=== PATIENT | female | born 1940 | race Caucasian/White ===

== ENCOUNTER → 2023-08-12 09:50 | Outpatient (REF) | payer MEDICARE, BC, SELFPAY ==
[2023-08-12 12:01] LABS: % Basophils 1.6 % (0-2); % Eosinophils 2.3 % (0-6); % Monocytes 9.6 % (1.7-9.3); % Neutrophils 61.5 % (42.2-75.2); Absolute Basophils 0.1 10^3/uL (0-0.2); Absolute Eosinophils 0.1 10^3/uL (0-0.7); Absolute Monocytes 0.4 10^3/uL (0.1-0.6); Absolute Neutrophils 2.4 10^3/uL (1.4-6.5); Hematocrit 41.8 % (37.0-47.0); Hemoglobin 13.7 g/dL (12.0-16.0); Mean Corp Hgb Conc. 32.8 g/dL (33.0-37.0); Mean Corpuscular Hgb 31.6 pg (27.0-31.0); Mean Corpuscular Volume 96.5 fL (81.0-99.0); Mean Platelet Volume 10.9 fL (7.4-10.4); Nucleated Red Blood Cells % 0 %; Platelet Count 148 10^3/uL (130-400); Red Blood Cell Count 4.33 10^6/uL (4.20-5.40); Red Cell Dist. Width 13.6 % (11.5-14.5); White Blood Cell Count 3.8 10^3/uL (4.8-10.8)
[2023-08-12 12:14] LABS: Urine Albumin Negative (Neg - Trace); Urine Bilirubin Negative (Negative); Urine Character Clear (Clear); Urine Color Yellow; Urine Glucose Negative (Negative); Urine Ketone Negative (Negative); Urine Leukocyte 1+ (Negative); Urine Nitrite Negative (Negative); Urine Occult Blood Negative (Negative); Urine Urobilinogen Negative (Neg - 1+)
[2023-08-12 12:19] LABS: ALT (SGPT) 18 U/L (0-35); AST (SGOT) 28 U/L (14-36); Alkaline Phosphatase 71 U/L (38-126); Blood Urea Nitrogen 23 mg/dl (7-17); Calcium 9.6 mg/dl (8.4-10.2); Carbon Dioxide 31 mmol/L (22-30); Chloride 102 mmol/L (98-107); Glucose 96 mg/dl (70-99); HDL Cholesterol 82 mg/dl; LDL Cholesterol, Calculated 117 mg/dl; Potassium 4.5 mmol/L (3.5-5.1); Sodium 139 mmol/L (135-145); Total Bilirubin 0.6 mg/dl (0.2-1.3); Total Cholesterol 227 mg/dl (50-199); Total Protein 6.9 g/dl (6.3-8.2); Triglyceride 143 mg/dl (10-149); Very Low Density Lipoprotein 28 mg/dl (0-30); eGFR > 60.00
[2023-08-12 12:33] LABS: Urine Red Blood Cell 0-2 /HPF (0-2)
== END ==
LOC: HWLAB 09:50
PROVIDERS: ATTENDING PHYSICIAN Internal Medicine Geriatric Medicine
DX: I10 Essential (primary) hypertension (principal); M25.551 Pain in right hip; R10.31 Right lower quadrant pain; I48.0 Paroxysmal atrial fibrillation; E78.2 Mixed hyperlipidemia; K21.9 Gastro-esophageal reflux disease without esophagitis; G47.33 Obstructive sleep apnea (adult) (pediatric); E66.01 Morbid (severe) obesity due to excess calories; Z13.89 Encounter for screening for other disorder; R53.82 Chronic fatigue, unspecified; B34.9 Viral infection, unspecified
CPT/HCPCS: 36415; 80053; 80061; 81003; 81015; 85025

== ENCOUNTER → 2023-09-11 11:04 | Outpatient (REF) | payer MEDICARE, BC, SELFPAY | LOC: HWRCS 11:04 | PROVIDERS: ATTENDING PHYSICIAN Internal Medicine Cardiovascular Disease; FAMILY PHYSICIAN Internal Medicine Geriatric Medicine | DX: Z98.890 Other specified postprocedural states (principal) | CPT/HCPCS: 93306 ==

== ENCOUNTER 2023-10-19 13:39 | Emergency (ER) | payer MEDICARE, BC, SELFPAY ==
[2023-10-19 13:45] VITALS: BP 180/77; BMI 35.4
--- NOTE | 2023-10-19 14:59 | ED.GENMED ---
History of Present Illness
General
Chief Complaint: Back Pain
Source: patient
Exam Limitations: none
Time Seen by Provider: 10/19/23 14:58
Nursing documentation reviewed up to this point in time: agreed with
History of Present Illness
History of Present Illness:
83-year-old female with past medical history of spinal stenosis, osteoarthritis, GERD, hypertension, presenting to the emergency department today with concerns of multiple weeks of low back pain. Patient states that this current episode started 2
weeks ago. Patient denies any trauma or falls. Patient does not recall what she is doing when pain started. Patient reports that her pain is worse with movement and tends to be worse upon awakening in the morning and tends to let up further in a
day. Patient has been taking 650 mg of Tylenol at dinnertime to help with her symptoms. Patient states that this will help a bit but her pain will quickly return. Patient has not tried anything else for symptoms. Patient does not have
orthopedist she follows with. Patient has not seen her primary care provider for this issue. Patient denies any fevers or chills, any saddle paresthesias, any fecal urinary incontinence, any paresthesias, any weakness in her legs, and difficulty
ambulating. Patient usually will ambulate with a walker, she lives at home by herself. Patient has any chest pain or shortness of breath, any upper back pain. Patient does take warfarin.
Past History
Past History
ED Past Medical History: CHF, GERD, HTN and Hypercholesterolemia; Negative Asthma or NIDDM
ED Past Surgical History: Gynecological (Oophorectomy)
Social History
Tobacco: Non-smoker
Alcohol: None
Personal: Single
Living: alone
Employment: Retired
Review of Systems
Review of Systems
All Other Systems: ROS reviewed and negative except as documented in HPI and ROS
Phy Exam
Physical Exam
Physical Exam:
General: Patient is well appearing and in no acute distress; non-toxic
Skin: Warm and dry, no rashes or lesions
Head: Normocephalic, atraumatic
Eyes: Sclera non-icteric. EOMs intact.
Cardiac: Regular rate and rhythm, no murmur
Peripheral Vascular: No lower extremity swelling or edema.
Pulm: Normal respiratory effort
Abdomen: No pulsatile abdominal mass
Musculoskeletal: 5 out of 5 strength in bilateral lower extremities. Negative straight leg raise bilaterally. Tenderness palpation of the thoracolumbar spine and paraspinal muscles. No palpable bony deformity.
Neuro: CN II-XII intact, no focal neurologic deficits.
Psychiatric: Appropriate mood and affect.
Course
Orders/Labs/Results
Orders:
Orders
10/19/23 15:24
CT Lumbar Spine W/o Iv Contras Urgent
Comment:
Reason For Exam: persistent low back pain, on warfarin
10/19/23 15:34
Acetaminophen [Tylenol] 1,000 mg PO NOW STA
10/19/23 16:13
Acetaminophen [Tylenol] 1,000 mg .ROUTE .STK-MED ONE
Vital Signs
Initial and Last Documented VS:
Initial Vital Signs
Temp Pulse Resp BP Pulse Ox
98.8 F 60 16 180/77 97
10/19/23 13:45 10/19/23 13:45 10/19/23 13:45 10/19/23 13:45 10/19/23 13:45
Last Documented Vital Signs
Temp Pulse Resp BP Pulse Ox
98.8 F 63 18 185/75 95
10/19/23 13:45 10/19/23 19:34 10/19/23 19:34 10/19/23 19:34 10/19/23 19:34
MDM/Problems Addressed
Differential Diagnosis Includes:
ddx include compression fracture, musculoskeletal sprain/strain, retroperitoneal hematoma, posterior rib contusion
MDM/Problems Addressed:
Persistent back pain:
83-year-old female with past medical history of spinal stenosis, osteoarthritis, GERD, hypertension, presenting to the emergency department today with concerns of multiple weeks of low back pain. Patient states that this current episode started 2
weeks ago. Patient denies any trauma or falls. Patient does not recall what she is doing when pain started. Patient reports that her pain is worse with movement and tends to be worse upon awakening in the morning and tends to let up further in a
day. Considering her use of blood thinner and persistent pain, CT of the lumbar spine was obtained which demonstrated multiple levels of degenerative changes with stenosis and also demonstrated severe osteoporosis and collapse of the T12 vertebral
body secondary to chronic superior endplate fracture with retropulsion of the posterior cortex of T12: Sitting mild compression of the conus medullaris. Considering this finding, I did reach out to the orthopedist on-call Dr. Garner who states
that surgical intervention is not necessary at this moment and recommends back brace for supportive measures and will help facilitate patient's follow-up with spinal specialist at [facility] health and nutrition specialist in the coming days. Patient
states that she does have a back brace at home but I did write her prescription for him. I sent lidocaine patches to her pharmacy, and discussed proper dosing of Tylenol. Patient has a follow-up with her primary in a few days as well. Patient
stable for discharge.
Chronic conditions affecting care:
CHF, hypertension, hyperlipidemia, GERD, osteoarthritis, spinal stenosis
*Pulse Oximetry
Patient hypoxic: no
*Critical Care Note
Total Time (30-74mins, 75-104mins- exclusive of procedures): Not Applicable
Data Reviewed
Review of Other/Old Records Reveals: Records (Patient has not been seen in the ER for back pain in the past)
Source: patient and records
Patient Management
Escalation/DeEscalation of care consider admission/obs:
Patient stable for discharge. Case reviewed with my attending Dr. Phillips.
ED Attending Note
-
Portions of this chart may have been created with voice recognition software.� Occasional wrong word or��sound alike� substitutions may have occurred due to the inherent limitations of voice recognition software.
Discharge Plan
Departure
Patient Disposition: Home (Routine Discharge)
Date of Disposition: 10/19/23
Time of Disposition: 19:17
Patient with high blood pressure during this ER visit?: Yes
Condition: Good
Discharge Problem:
Compression fracture, Osteonecrosis
Instructions: Vertebral compression fracture, Low Back Pain (DC), BLOOD PRESSURE
Prescriptions:
New
(DME) back brace Misc
See Rx Instructions .Route Qty: 1 0RF
Rx Instructions:
As directed
lidocaine 5 % adhesive patch,medicated
1 patch topical DAILY Qty: 15 0RF
No Action
alendronate 70 MG tablet
70 mg PO Q7D
verapamil 180 MG tablet extended release
180 mg PO DAILY
omeprazole [Prilosec] 10 MG capsule,delayed release(DR/EC)
1 cap PO .3TIMES/WEEK
cholecalciferol (vitamin D3) 2,000 UNITS tablet
2,000 unit PO DAILY
lisinopril 10 MG tablet
10 mg PO DAILY Qty: 30 2RF
famotidine 20 MG tablet
20 mg PO DAILY
calcium carbonate [Antacid (calcium carbonate)] 1 TABLET tablet,chewable
1 tab PO DAILY
aspirin [Aspirin Childrens] 81 MG tablet,chewable
81 mg PO DAILY
L.acidoph, paracasei,B. lactis 1 EACH capsule
1 ea PO DAILY
acetaminophen 325 MG tablet
650 mg PO BID
furosemide 20 MG tablet
20 mg PO DAILY
amiodarone [Pacerone] 200 MG tablet
200 mg PO BID Qty: 90 0RF
Rx Instructions:
Take on tablet daily for 7 days then reduce to one tablet daily until seen by your Social Service Worker.
oxycodone 5 MG tablet
5 mg PO Q6HPRN PRN (Reason: MILD PAIN (SEE COMMENT)) Qty: 40 0RF
metoprolol tartrate 12.5 MG tablet
12.5 mg PO BID Qty: 60 3RF
multivitamin with folic acid [Tab-A-Casper] 1 TABLET tablet
1 tab PO DAILY 0RF
guaifenesin [Mucus Relief ER] 600 MG tablet extended release 12hr
600 mg PO Q12 Qty: 0 0RF
warfarin [Jantoven] 5 MG tablet
5 mg PO QPM Qty: 90 3RF
Rx Instructions:
Take 10mg today, 12/22, day of discharge, then as directed for an INR 2.0-3.0
amiodarone [Pacerone] 200 MG tablet
200 mg PO BID Qty: 30 0RF
Rx Instructions:
Take 1 tab BID for 7 days then reduce to 1 tab daily until seen by reconnaissance crewmember
albuterol sulfate [ProAir HFA] 90 mcg/actuation HFA aerosol inhaler
2 puff inhalation Q6H PRN (Reason: shortness of breath or wheezing) Qty: 8.5 0RF
Referrals:
Renzo Paige MD [Family Provider] -
Alexandre Garner MD [Active] - Call in 1-3 days for appt
Activity Restrictions/Additional Instructions:
Your CT scan shows osteoarthritis and spinal stenosis. It also shows a compression fracture at the T12 level with osteonecrosis and collapse. I have contacted the orthopedist on-call who recommends wearing a back brace for support and following up
with the spinal team at [facility] orthopedic specialists this week in the office.
Please call the office first thing tomorrow and say that you were seen here in the emergency department and that Dr. Garner is aware of your case and will help facilitate follow up for this.
Please return emergency department should you develop the inability to ambulate, fecal or urinary incontinence, numbness or tingling in the genital region, fevers or chills, weakness in your lower extremities, or any other signs or symptoms
concerning to you.
Lidocaine patches have been sent to your pharmacy. You can apply 1 patch over lower back. You can place one patch on the back once daily. PLEASE REMOVE PATCH AFTER 12 HOURS.
For the Tylenol, you can take one 325 mg Tylenol tablet every 4-6 hours as needed for pain. You can increase this to 1 g orally ever 4-6 hours. PLEASE DO NOT EXCEED 4 GRAMS OF TYLENOL IN 24 HOURS.
Interventions
Interventions:
*Risk Screen - Suicide Last Done: 10/19/23 13:45
*General Assessment Last Done: 10/19/23 16:22
*Neglect/Abuse Screening Last Done: 10/19/23 13:45
ED- Fall Risk Assessment Last Done: 10/19/23 19:34
*ED COVID-19 Vaccine History Last Done: 10/19/23 16:22
*Nursing Disposition Last Done: 10/19/23 19:34
ED-Musculoskeletal Assessment Last Done: 10/19/23 16:22
Discharge Date and Time
Discharge Date/Time: 10/19/23 19:35
Print Language: ICELANDIC
[2023-10-19] MEDS: TYLENOL 1000 MG PO (16:17)
[2023-10-19 19:34] VITALS: BP 185/75
== END 2023-10-19 19:35 | disposition home or self-care (01) ==
LOC: EMR 13:39
PROVIDERS: EMERGENCY PHYSICIAN Emergency Medicine; FAMILY PHYSICIAN Internal Medicine Geriatric Medicine
DX: M48.54XA Collapsed vertebra, not elsewhere classified, thoracic region, initial encounter for fracture (principal); M87.9 Osteonecrosis, unspecified; M48.00 Spinal stenosis, site unspecified; M19.90 Unspecified osteoarthritis, unspecified site; K21.9 Gastro-esophageal reflux disease without esophagitis; I11.0 Hypertensive heart disease with heart failure; I50.9 Heart failure, unspecified; E78.00 Pure hypercholesterolemia, unspecified; Z79.01 Long term (current) use of anticoagulants; Z90.721 Acquired absence of ovaries, unilateral
CPT/HCPCS: 99284; 72131

== ENCOUNTER → 2023-11-05 10:40 | Outpatient (REF) | payer MEDICARE, BC, SELFPAY | LOC: HWRAD 10:40 | PROVIDERS: ATTENDING PHYSICIAN Family Medicine; FAMILY PHYSICIAN Internal Medicine Geriatric Medicine | DX: M80.00XA Age-related osteoporosis with current pathological fracture, unspecified site, initial encounter for fracture (principal); S22.080D Wedge compression fracture of T11-T12 vertebra, subsequent encounter for fracture with routine healing; Z78.0 Asymptomatic menopausal state | CPT/HCPCS: 77080 ==

== ENCOUNTER → 2024-08-24 11:01 | Outpatient (REF) | payer MEDICARE, BC, SELFPAY | LOC: RCS 11:01 | PROVIDERS: ATTENDING PHYSICIAN Internal Medicine Cardiovascular Disease; FAMILY PHYSICIAN Internal Medicine Geriatric Medicine | DX: Z95.2 Presence of prosthetic heart valve (principal); Z98.890 Other specified postprocedural states | CPT/HCPCS: 93306 ==

== ENCOUNTER → 2025-02-28 09:47 | Outpatient (REF) | payer MEDICARE, BC, SELFPAY | LOC: WDC 09:47 | PROVIDERS: ATTENDING PHYSICIAN Internal Medicine Geriatric Medicine | DX: N64.4 Mastodynia (principal) | CPT/HCPCS: 76642; 77062; 77066 ==